=== PATIENT | female | born 1980 | race Two or more races ===

== ENCOUNTER 2018-05-12 14:59 | Emergency (ER) | payer MEDICAID ==
[~2018-05-12] VITALS: Ht 160 cm; Wt 73.9 kg
[2018-05-12 15:16] VITALS: Ht 160 cm; Wt 73.9 kg
[2018-05-12 16:08] VITALS: BP 123/77
== END 2018-05-12 16:08 | disposition home or self-care (01) ==
LOC: ED 14:59
DX: J06.9 Acute upper respiratory infection, unspecified (principal); J30.9 Allergic rhinitis, unspecified; H65.92 Unspecified nonsuppurative otitis media, left ear

== ENCOUNTER 2018-10-31 20:17 | Emergency (ER) | payer MEDICAID ==
[~2018-10-31] VITALS: Ht 160 cm; Wt 67.6 kg
[2018-10-31 20:34] VITALS: BP 101/69; Ht 160 cm; Wt 67.6 kg
== END 2018-11-01 00:34 | disposition left against medical advice (07) ==
LOC: ED 20:17
DX: Z53.21 Procedure and treatment not carried out due to patient leaving prior to being seen by health care provider (principal)

== ENCOUNTER 2018-11-02 20:25 | Emergency (ER) | payer MEDICAID ==
[~2018-11-02] VITALS: Ht 160 cm; Wt 68.0 kg
[2018-11-02 20:30] VITALS: Ht 160 cm; Wt 68.0 kg
[2018-11-02 21:33] VITALS: BP 115/71
== END 2018-11-02 21:33 | disposition home or self-care (01) ==
LOC: ED 20:25
DX: N39.0 Urinary tract infection, site not specified (principal)
CPT/HCPCS: Q0162

== ENCOUNTER 2019-02-27 20:39 | Emergency (ER) | payer MEDICAID ==
[~2019-02-27] VITALS: Ht 160 cm; Wt 74.8 kg
[2019-02-27 20:57] VITALS: Ht 160 cm; Wt 74.8 kg
[2019-02-28 02:03] VITALS: BP 113/56
== END 2019-02-28 02:03 | disposition home or self-care (01) ==
LOC: ED 20:39
DX: J11.1 Influenza due to unidentified influenza virus with other respiratory manifestations (principal); J45.909 Unspecified asthma, uncomplicated
CPT/HCPCS: 87804; Q0092